=== PATIENT | female | born 1965 | race Caucasian/White ===

== ENCOUNTER → 2017-12-08 | Outpatient (CLI) | payer BC ==
[~2017-12-08] MED LIST: ASPI81TA28 PO; BUSP15TA70 PO; CYCL5TAB PO; DXM/4 PO; FERR1TAB13 PO; FEXO1TAB49 PO; FLUC100T4 PO; FLUO10CA24 PO; FLUT0.15; FURO40TA3 PO; INSDGIPEN SC; LORA-741 PO; MAGIC MOUTHWASH; MULT-506 PO; NVLGI/PEN SC; ONDA4TAB46 PO; PANT40TA PO; POTA1CAP2 PO; RANI150T3 PO
[2017-12-08 15:11] VITALS: BP 136/78; PULSE 85; TEMP 36.9; O2SAT 96
--- NOTE | 2017-12-10 10:07 | Radiation Oncology Follow-Up ---
Radiation Oncology Follow-Up Date of Visit Dec 08, 2017. 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 Kelly is a 52-year-old female who presents with a history of metastatic renal cell carcinoma. She was recently diagnosed with metastatic disease of the brain. She was most recently treated with Votrient underneath the supervision of Dr. Oneill and Dr. Darling. 09/03/2017 --- CT of chest/abdomen/pelvis --- mild progressive increase in size and mediastinal metastatic lymphadenopathy, post right nephrectomy without findings of local recurrence, unchanged left upper lobe scarring/radiation related changes. 11/05/2017 --- medical oncology follow-up with Dr. Oneill at [facility] --- Dr. Oneill recommended switching the patient from Votrient due to side effects to Opdivo underneath the supervision of Dr. Sorin Darling. She also recommended a MRI of brain given the patient's neurologic symptoms. 11/09/2017 --- MRI of brain --- IMPRESSION: 1.8 x 1.5 x 1.4 cm left temporal lobe lesion with extensive associated vasogenic edema and mass effect, including mild compression of the left lateral ventricle and mild rightward midline shift. This lesion is highly suggestive of metastatic disease. A primary brain neoplasm could appear similar although is considered less likely. The patient was seen in follow-up evaluation with Dr. Sorin Darling who recommended consideration of external beam radiation therapy. We are now seeing the patient in consultation to discuss role of radiation therapy. Currently, the patient states that her headaches have improved given the fact that Dr. Darling did start her on Decadron 4 mg 4 times daily. She does also note that she has some blurry vision and did recently see an corporate planner and has given a new prescription for eyeglasses which she has not filled. Additionally, she notes that she does have some episodes where her vision does blackout as well. She does admit to not properly taking care of her diabetes and states her sugar levels have been higher since she has been on Decadron. She did mention some double vision intermittently. She denies any other focal neurologic deficits. Status post completion of stereotactic radiation therapy to the brain November 23, 2017. She received 1800 cGy. Interim History Over this past month she continues to have intermittent headaches. She describes these as being in the frontal area. There is been no change of vision. She denies dizziness. There is no associated nausea. She did not experience any hair loss with her treatment. She is currently on higher dose of dexamethasone due to a rash caused by nivolumab. This is being followed by Dr. Darling. She has had steady improvement of the rash with the increase dexamethasone. She stated she is also being treated for pneumonia. She was seen and was given a prescription for antibiotic therapy today. Allergies Coded Allergies: Sulfa Antibiotics (Verified Allergy, Intermediate, HIVES, 11/30/17) Bacitracin (Unverified Allergy, Unknown, HIVES , 11/30/17) Latex1 -Allergic Contact Dermititis (Verified Allergy, Unknown, LOCAL DERMATITIS, 11/30/17) Neomycin (Unverified Allergy, Unknown, HIVES , 11/30/17) Penicillins (Verified Allergy, Unknown, 11/30/17) Polymyxin B (Unverified Allergy, Unknown, HIVES , 11/30/17) Home Medications Scheduled Aspirin (Aspirin Ec), 81 MG PO DAILY Buspirone Hcl (Buspar), 5 MG PO DAILY Dexamethasone (Decadron), 5 TAB PO BID Ferrous Sulfate (Kp Ferrous Sulfate), 1 TAB PO DAILY Fexofenadine Hcl (Jennifer Allergy), 1 TAB PO DAILY Fluoxetine HCl (Fluoxetine HCl), 10 MG PO QAM Fluticasone Propionate (Nasal) (Flonase Allergy Relief), 1 SPRAY NA DAILY Furosemide (Lasix), 20 MG PO DAILY Insulin Aspart (Novolog Flexpen), 25 SC QID Insulin Glargine (Lantus Solostar), 40 UNITS SC HS Multivitamin (Multivitamin), 1 TAB PO DAILY Pantoprazole (Protonix), 40 MG PO DAILY Potassium Chloride (Potassium Chloride Er), 1 CAP PO DAILY Ranitidine Hcl (Zantac), 150 MG PO BID Scheduled PRN Cyclobenzaprine Hcl (Flexeril), 1 TAB PO HS PRN for Insomnia Lorazepam (Ativan), 0.5 MG PO TIDPRN PRN for ANXIETY Ondansetron Hcl (Zofran), 8 MG PO Q8 PRN for Nausea Miscellaneous Medications [Magic Mouthwash] Review of Systems Gastrointestinal: Symptoms: WNL GI Comments: moves bowels frequently Oral: Symptoms: No Problems Other Oral Symptoms: Uses magic mouthwash PRN, states her mouth is swollen Respiratory: Symptoms: WNL, SOB With Exertion Other Respiratory: Recently diagnosed with pneumonia Urinary: Symptoms: WNL Skin: Symptoms: No Problems Other Skin Symptoms: Scalp is sore at tx area Physical Exam Vital Signs Date Time Temp Pulse Resp B/P (MAP) Pulse Ox O2 Delivery O2 Flow Rate FiO2 12/08/17 15:11 36.9 85 24 136/78 96 Fatigue: None General Appearance: no apparent distress Eyes: normal inspection, EOMI ENT: normal ENT inspection, hearing grossly normal Respiratory/Chest: no respiratory distress, no accessory muscle use, + decreased breath sounds Cardiovascular: regular rate, rhythm, no gallop, no murmur 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 Laboratory Laboratory Results: were reviewed Pathology Pathology Results: were reviewed, and pertinent findings noted in HPI Imaging Imaging Studies: not applicable Assessment & Plan Plan: Patient is also seen and examined by Dr. Candelaria. She continues the dexamethasone at the dose prescribed by Dr. Darling. Will defer to him for any future tapering of the medication once she is recovered from her rash and pneumonia. We asked her to return to our office in 2 months. Will obtain an MRI of the brain following [facility] protocol prior to that visit. She may call our office if she has any questions or concerns in the interim. Assessment & Plan (Attending) I agree with note created by Meghan Jimenez PA-C. I reviewed the patient's chart and information with her. I have examined and evaluated the patient. I reviewed relevant clinical information and answered the patient's and/or family' s questions. 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 I spent 15 minutes reviewing information and completing this note. AK Total Time (Attending) In Follow-Up I spent 15 minutes examining and counseling the patient. 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
== END | disposition home or self-care (01) ==
LOC: C.ONC 15:02
PROVIDERS: ATTEND Physician Assistant Medical
DX: Z08 Encounter for follow-up examination after completed treatment for malignant neoplasm (principal); Z92.3 Personal history of irradiation; Z85.841 Personal history of malignant neoplasm of brain